=== PATIENT | male | born 1970 | race African-American/Black ===

== ENCOUNTER 2022-05-06 12:29 | Emergency (ER) | payer SELFPAY ==
[2022-05-06 12:56] VITALS: BP 150/89; PULSE 76; RESP 16; TEMP 36.9; O2SAT 97; BMI 38.0
[2022-05-06 13:30] VITALS: BP 175/111; PULSE 68; RESP 16; TEMP 36.7; O2SAT 99; BMI 38.0
--- NOTE | 2022-05-06 13:39 | HMH.EDUTC ---
[facility] [place] Clinical Impression: Hypertension Qualifiers: Hypertension type: unspecified Qualified Code(s): I10 - Essential (primary) hypertension Sinusitis Qualifiers: Sinusitis location: unspecified location Chronicity: acute Recurrence: non-recurrent Qualified Code(s): J01.90 - Acute sinusitis, unspecified Disposition: Home, Self-Care Condition on Discharge: Serious Instructions: Essential Hypertension, DI for Sinusitis Additional Instructions: Drink plenty of fluids. Take tylenol or ibuprofen for pain or fever. Take the medications as directed. Follow up with your regular doctor. GO TO THE ER FOR ANY WORSENING SYMPTOMS Prescriptions: Amlodipine Besylate [Amlodipine 10mg Tab] 10 mg PO DAILY #30 tab [facility]: [facility] Ben[facility] [Benzonatate 100mg cap] 100 mg PO TIDP PRN #30 cap PRN Reason: Cough Transmission Status: [facility] hydroCHLOROthiazide [HCTZ 25mg tab] 25 mg PO DAILY #30 tab Transmission Status: Received by [facility] Azithromycin [Z-Gaston 250mg Tab*] 250 mg PO UD DOSE PK #6 tab Transmission Status: [facility] Referrals: Provider,Referral, MD [Primary Care Provider] - Time of Disposition: 14:02 Medical Decision Making - Medical Records Medical records reviewed: No: I reviewed the patient's medical records. - Philip Inquiry Pt receiving controlled substance: No Vital Signs: 05/06/22 12:56 05/06/22 13:30 05/06/22 14:07 Temperature 98.4 F 98.0 F 98.0 F Temperature Source Oral Temporal Artery Scan Pulse Rate 68 Pulse Rate [Left Radial] 76 68 Respiratory Rate 16 16 16 Blood Pressure 152/83 H Blood Pressure [Left Arm] 150/89 H 175/111 H Blood Pressure Mean [Left Arm] 109 132 Blood Pressure Source [Left Arm] Automatic Cuff Blood Pressure Position [Left Arm] Sitting 02 Sat by Pulse Oximetry 97 99 Oxygen Delivery Method Room Air - Lab Data Lab Results 05/06/22 13:24: Group A Strep Rapid Negative Orders (Tests/Meds): ORDERS Category Date Time Status Strep Screen Confirmation Stat Micro 05/06/22 13:24 Received [facility] [place] - General Stated complaint: Just don't feel right; thinks BP is up; cough Time Seen by Provider: 05/06/22 13:39 Description of Symptoms (Recalled from Triage Doc. by RN): patient comes in today for chest congestion, dry cough, dry scrathcy throat, body warm to the touch but no fever. patient also states that he forgot his medication at home while traveling to [place] to visit. and his blood pressure has bene flucuating for the past several days HEENT Symptoms (Recalled from RN notes): Yes Resp Symptoms (Recalled from RN notes): Yes Skin Symptoms (Recalled from RN notes): No MS Symptoms (Recalled from RN notes): No Functional Status (Recalled from RN notes): wnl - History of Present Illness Provider Complaint: He is here visiting family away from his home in [place]. He is prescribed amlodipine and hctz for hypertension. He states that he needs a refill on these. he is also having fatigue and feeling kind of bad. He denies any fever or chills, but he would like to be tested for covid to be safe - Related Data Previous Rx's Medication Instructions Recorded Amlodipine Besylate [Amlodipine 10 mg PO DAILY #30 tab 05/06/22 10mg Tab] Azithromycin [Z-Gaston 250mg Tab*] 250 mg PO UD DOSE PK #6 tab 05/06/22 Benzonatate [Benzonatate 100mg 100 mg PO TIDP PRN #30 cap 05/06/22 cap] hydroCHLOROthiazide [HCTZ 25mg 25 mg PO DAILY #30 tab 05/06/22 tab] Allergies Allergy/AdvReac Type Severity Reaction Status Date / Time No Known Allergies Allergy Verified 05/06/22 13:33 - Worker's Comp Is this a Worker's Comp case?: No [facility] History - Hepatitis A Screen Attestation statement:: This patient has been screened for Hepatitis A risk factors. I have reviewed the patient's past medical histor
[2022-05-06 13:56] LABS: Strep Scrn Group A (Rapid) Negative (Negative)
[2022-05-06 14:07] VITALS: BP 152/83; PULSE 68; RESP 16; TEMP 36.7
== END 2022-05-06 14:09 | disposition home or self-care (01) ==
PROVIDERS: Emergency Provider Nurse Practitioner Family
DX: I10 Essential (primary) hypertension (principal); J01.90 Acute sinusitis, unspecified
CPT/HCPCS: 87430; 99212; C9803; G0463; U0003; U0005